=== PATIENT | male | born 1980 | race Caucasian/White ===

== ENCOUNTER 2019-11-19 16:46 | Emergency (ER) | payer BC ==
--- NOTE | 2019-11-19 17:03 | EDM.PDOC ---
ED HPI GENERAL MEDICAL PROBLEM - General Chief Complaint: Lower Extremity Injury/Pain Stated Complaint: SENT FROM [place] Time Seen by Provider: 11/19/19 16:54 Source of Information: Reports: Patient History Limitations: Reports: No Limitations - History of Present Illness INITIAL COMMENTS - FREE TEXT/NARRATIVE: This 39 yo male patient reports to the ED from [place] due to left lower extremity erythema and pain. The patient reports he started noticing pain on Sunday (11/16/19) with increased pain throughout the beginning of the week. The patient reports he had a fever on Sunday, but has not had any fever since that time. The patient reports he does not know of any specific injury to the area. The patient was advised by his provider that he needs to have an ultrasound to rule out a blood clot in his leg. The provider did not start him on any antibiotics during the visit in [place]. The provider did send her note from the visit and the lab results (CBC, BMP and PT/INR). Reviewing the records demonstrates the patient has a WBC of 12.7, RBC 4.98, Hgb 14.2, Gluc. 118, BUN 12, Creat 0.8, sodium 137, Potassium 3.2, Chloride 104 and an INR of 1.04. Onset Date: 11/16/19 Duration: Constant, Getting Worse Location: Reports: Lower Extremity, Left Quality: Reports: Ache, Dull Severity: Moderate Improves with: Reports: None Worsens with: Reports: None Context: Reports: Other Left Lower Leg Pain Score (Numeric/FACES): 5 - Related Data Allergies Allergy/AdvReac Type Severity Reaction Status Date / Time red dye Allergy Hives Verified 11/19/19 16:55 Home Meds: Home Meds Loratadine [Allergy Relief] 10 mg PO BEDTIME 11/19/19 [History] Triamcinolone Acetonide [Nasacort] 10.8 ml NS DAILY 11/19/19 [History] Review of Systems - Review of Systems Review Of Systems: Comprehensive ROS is negative, except as noted in HPI. ED EXAM, GENERAL - Physical Exam Exam: See Below Exam Limited By: No Limitations General Appearance: Alert, WD/WN, Mild Distress, Other Eye Exam: Bilateral Eye: EOMI, Normal Inspection, PERRL Ears: Normal External Exam, Normal Canal, Hearing Grossly Normal, Normal TMs Nose: Normal Inspection, Normal Mucosa, No Blood Throat/Mouth: Normal Inspection, Normal Lips, Normal Teeth, Normal Gums, Normal Oropharynx, Normal Voice, No Airway Compromise Head: Atraumatic, Normocephalic Neck: Normal Inspection, Supple, Non-Tender, Full Range of Motion Respiratory/Chest: No Respiratory Distress, Lungs Clear, Normal Breath Sounds, No Accessory Muscle Use, Chest Non-Tender Cardiovascular: Normal Peripheral Pulses, Regular Rate, Rhythm, No Edema, No Gallop, No JVD, No Murmur, No Rub GI/Abdominal: Normal Bowel Sounds, Soft, Non-Tender, No Organomegaly, No Distention, No Abnormal Bruit, No Mass (Male) Exam: Deferred Rectal (Males) Exam: Deferred Back Exam: Normal Inspection, Full Range of Motion, NT Extremities: Pedal Edema (lle), Leg Pain (lle), Increased Warmth (LLE) Neurological: Alert, Oriented, CN II-XII Intact, Normal Cognition, Normal Reflexes, No Motor/Sensory Deficits Psychiatric: Normal Affect, Normal Mood Skin Exam: Erythema (lle), Increased Warmth (lle) Lymphatic: No Adenopathy Course - Vital Signs Last Recorded V/S: Last Vital Signs Temp 37.5 C 11/19/19 16:48 Pulse 105 H 11/19/19 16:48 Resp 16 11/19/19 16:48 BP 146/84 H 11/19/19 16:48 Pulse Ox 97 11/19/19 16:48 - Orders/Labs/Meds Orders: Active Orders 24 hr Category Date Time Status Venous Doppler Lwr Ext Lt [US] Urgent Exams 11/19/19 16:49 Ordered Meds: Medications Discontinued Medications Generic Name Dose Route Start Last Admin Trade Name Freq PRN Reason Stop Dose Admin Cephalexin 500 mg 11/19/19 17:58 Keflex PO 11/19/19 17:59 ONETIME ONE Trimethoprim/Sulfamethoxazole 1 tab 11/19/19 17:58 Septra Ds PO 11/19/19 17:59 ONETIME ONE Departure - Departure Time of Disposition: 18:01 Disposition: Home, Self-Care 01 Condition: Fair Clinical Impression: Cellulitis of left lower extremity - Discharge Information *PRESCRIPTION DRUG MONITORING PROGRAM REVIEWED*: Not Applicable *COPY OF PRESCRIPTION DRUG MONITORING REPORT IN PATIENT ANIL: Not Applicable Instructions: Cellulitis, Adult, [id number] Forms: ED Department Discharge Care Plan Goals: The patient was advised of the examination and ultrasound results during the visit. The patient was discharged with a script for Keflex (500 mg) #30 to take 1 by mouth 3 times per day for 10 days and Bactrim DS #20 to take 1 by mouth 2 times per day for 10 days. The patient was encouraged to follow-up with his primary care facility. If the patient has any additional symptoms or concerns, the patient should either return to the emergency department or visit his primary care facility. Sepsis Event Note - Evaluation Sepsis Screening Result: No Definite Risk - Focused Exam Vital Signs: Vital Signs Temp Pulse Resp BP Pulse Ox 11/19/19 16:48 37.5 C 105 H 16 146/84 H 97 Date Exam was Performed: 11/19/19 Time Exam was Performed: 18:01 - My Orders Last 24 Hours: My Active Orders 11/19/19 16:49 Venous Doppler Lwr Ext Lt [US] Urgent - Assessment/Plan Last 24 Hours: My Active Orders 11/19/19 16:49 Venous Doppler Lwr Ext Lt [US] Urgent
[2019-11-19] MEDS ORDERED: Cephalexin 500 MG Cap PO ONE (17:58)
[2019-11-19] MEDS ORDERED: Sulfamethoxazole/Trimethoprim 800-160 MG Tab PO ONE (17:58)
== END 2019-11-19 18:06 | disposition home or self-care (01) ==
LOC: DL.ED 16:46
DX: L03.116 Cellulitis of left lower limb (principal); Z91.041 Radiographic dye allergy status
CPT/HCPCS: 93971; 99283-25; A9270-GY